=== PATIENT | female | born 1960 ===

== ENCOUNTER 2024-06-27 05:25 | Day surgery (SDC) | payer OTHER ==
[2024-06-21 16:50] VITALS: BP 130/74
[~2024-06-27] VITALS: Ht 167.6 cm; Wt 110.2 kg
[~2024-06-27 05:25] MED LIST: CHILDREN'S ASPI81 MG PO; CLONAZEPAM1 M1 PO; COZAAR25 MG PO; OZEMPIC0.25 MG/02; PAXIL30 MG PO; ROSUVASTATIN CA10 MG PO; SYNTHROID150 MCG PO; TRAZODONE HCL150 MG PO
[2024-06-27] MEDS ORDERED: CLINDAMYCIN PHOSPHATE 150 MG/ML (900mg) ONE (06:57)
[2024-06-27] MEDS ORDERED: BUPIVACAINE HCL/Mpf 0.5% 10ML VIAL ONE (06:57)
[2024-06-27] MEDS ORDERED: ISOPROPYL ALCOHOL 30 ML OUNCE TOP ONE (08:15)
[2024-06-27] MEDS ORDERED: BUPIVACAINE HCL/PF 0.25% 30ML VIAL InF ONE (08:15)
[2024-06-27] MEDS ORDERED: CLINDAMYCIN PHOSPHATE 150 MG/ML (900mg) IV ONE (08:15)
[2024-06-27] MEDS ORDERED: BACITRACIN 28.35 GM OINT.TUBE TOP ONE (08:15)
[2024-06-27] MEDS ORDERED: SUGAMMADEX SODIUM 200 MG/2 ML VIAL IV ONE ×2 (08:15→08:20)
== END 2024-06-27 10:55 | disposition home or self-care (01) ==
LOC: U 05:25 → CIR.AMB 05:25
PROVIDERS: ATTEND Surgery Surgery of the Hand
DX: M15.0 Primary generalized (osteo)arthritis (principal)